=== PATIENT | male | born 1930 ===

== ENCOUNTER 2018-03-26 18:30 | Emergency (ER) | payer MEDICARE ==
[2018-03-26 18:49] VITALS: BP 158/77; PULSE 76; TEMP 97.9; O2SAT 96
--- NOTE | 2018-03-26 19:07 | C.PDOC ---
History Of Present Illness patient presents with redness of the right wrist for about 2 weeks. Initially he put some iodine on it , then antibiotic ointment, but no improvement . erythema, no f/c/n/v. non tender. FROM, denies any trauma Time Seen by Provider: 03/26/18 19:07 Chief Complaint (Nursing): Abnormal Skin Integrity History Per: Patient History/Exam Limitations: no limitations Onset/Duration Of Symptoms: Days (14) Location Of Injury: Right: Forearm (wrist) Quality Of Symptoms: Other (erythematous) Severity: Mild Pain Scale Rating Of: 3 Recent travel outside of the [place]: No Additional History Per: Patient Past Medical History Reviewed: Historical Data, Nursing Documentation, Vital Signs Vital Signs: Last Vital Signs Temp 97.9 F 03/26/18 18:48 Pulse 76 03/26/18 18:48 Resp BP 158/77 H 03/26/18 18:48 Pulse Ox 96 03/26/18 19:07 - Medical History PMH: HTN Family History: States: No Known Family Hx - Social History Hx Alcohol Use: No Hx Substance Use: No - Immunization History Hx Tetanus Toxoid Vaccination: No Hx Influenza Vaccination: No Hx Pneumococcal Vaccination: No Review Of Systems Constitutional: Negative for: Fever, Chills Musculoskeletal: Negative for: Hand Pain Skin: Positive for: Rash (right wrist ventral side erythema) Neurological: Negative for: Weakness Psych: Negative for: Anxiety Physical Exam - Physical Exam Appears: Non-toxic, No Acute Distress Skin: Warm, Dry, Rash (erythema, worm 3x5 cm area ventral aspect right wrist, from, ), Other (vitiligo) Extremity: Normal ROM Extremity: Bilateral: Atraumatic Pulses: Left Radial: Normal, Right Radial: Normal Neurological/Psych: Oriented x3 Gait: Steady ED Course And Treatment O2 Sat by Pulse Oximetry: 96 Pulse Ox Interpretation: Normal Disposition Counseled Patient/Family Regarding: Studies Performed, Diagnosis, Need For Followup, Rx Given - Disposition Referrals: [facility] [Outside] [facility] [Outside] Disposition: HOME/ ROUTINE Disposition Time: 19:07 Condition: FAIR Additional Instructions: Please return if redness of the wrist spreads or you have fever, chills Prescriptions: Cephalexin [Keflex] 500 mg PO TID #21 capsule Instructions: Cellulitis (Skin Infection), Adult (DC) Forms: [employer] (Spanish) - Clinical Impression Clinical Impression: Skin irritation, Cellulitis
== END 2018-03-26 19:31 | disposition home or self-care (01) ==
LOC: C.ER 18:30
DX: L03.113 Cellulitis of right upper limb (principal); L98.8 Other specified disorders of the skin and subcutaneous tissue